=== PATIENT | female | born 1940 | race Caucasian/White ===

== ENCOUNTER 2017-01-06 18:31 | Observation (INO) | payer MEDICARE ==
[~2017-01-06 18:31] MED LIST: Albuterol/Ipratropium 3.0-0.5 MG/3 ML Neb Soln NEB ONE
[2017-01-06] MEDS ORDERED: Morphine 2 MG/ML Syringe IVPUSH ONE (18:35)
[2017-01-06] MEDS ORDERED: methylPREDNISolone Sodium Succinate 125 MG/2 ML SDV IVPUSH ONE (18:43)
--- NOTE | 2017-01-06 18:53 | EDM.PDOC ---
ED HPI GENERAL MEDICAL PROBLEM - General Stated Complaint: STROKE Time Seen by Provider: 01/06/17 18:31 Source of Information: Reports: Patient, EMS History Limitations: Reports: Altered Mental Status - History of Present Illness INITIAL COMMENTS - FREE TEXT/NARRATIVE: 76 years old w f with multiple medical issues, including, dementia, incontinence , CVA, came to the ed due to "stroke like symptoms" . No family is present, pt is not able to give a HPI. Pt is DNR/DNI. Pt has a gaze to the left, upper airways are open, not responding to verbal stimuli, BP 171/87 on arrval, puls was 88, Puls ox was 96 on RA, Pt's entire body was rigid. does not move her extremities. Pt had poor air movement with exp. wheezes. Onset: Unknown/Unsure Onset Date: 01/06/17 Onset Time: 13:00 Duration: Hour(s):, Constant Location: Reports: Generalized - Related Data Allergies Allergy/AdvReac Type Severity Reaction Status Date / Time hydrochlorothiazide Allergy Cannot Verified 01/06/17 19:36 [From Hyzaar] Remember levofloxacin [From Levaquin] Allergy Cannot Verified 01/06/17 19:36 Remember losartan potassium Allergy Cannot Verified 01/06/17 19:36 [From Hyzaar] Remember Home Meds: Home Meds Hydrochlorothiazide [Hydrochlorothiazide] 12.5 mg PO DAILY 01/06/17 [History] L. Acidophilus/Strept/LA P-Naveed [Risaquad-2] 1 cap PO DAILY 01/06/17 [History] Lisinopril 20 mg PO BID 01/06/17 [History] Loperamide [Imodium AD] 2 mg PO DAILY 01/06/17 [History] Memantine [Namenda] 10 mg PO BID 01/06/17 [History] Metoprolol Tartrate [Lopressor] 50 mg PO BID 01/06/17 [History] Omeprazole 20 mg PO DAILY 01/06/17 [History] ED ROS GENERAL - Review of Systems Review Of Systems: Unable To Obtain ED EXAM, NEURO - Physical Exam Exam: See Below Exam Limited By: Other General Appearance: WD/WN, Mild Distress Eye Exam: Bilateral Eye: Abnormal EOM (gaze preference to left (old)) Ears: Normal External Exam Nose: Normal Inspection, Normal Mucosa, No Blood Throat/Mouth: No Airway Compromise, Other (dry mucosal membrtanes) Head Exam: Atraumatic, Normocephalic Neck: Normal Inspection, Supple, Non-Tender, Full Range of Motion Respiratory/Chest: Respiratory Distress, Decreased Breath Sounds, Wheezing, Prolonged Expiration Cardiovascular: Normal Peripheral Pulses, Regular Rate, Rhythm, No Edema, No Gallop GI/Abdominal: Normal Bowel Sounds, Soft, Non-Tender, No Organomegaly (Female) Exam: Deferred Rectal (Female) Exam: Deferred Neurological: Other (unable to examine due to the Pt's underlying disease) Back Exam: Normal Inspection, Full Range of Motion Extremities: Normal Inspection Psychiatric: Depressed Mood, Flat Affect Skin Exam: Warm, Dry, Intact, Normal Color, No Rash EKG INTERPRETATION EKG Date: 01/06/17 Time: 19:00 Rhythm: NSR Rate (Beats/Min): 88 [place]: Normal P-Wave: Present QRS: Normal ST-T: Normal QT: Normal Comparison: NA - No Prior EKG Course - Vital Signs Text/Narrative:: 76 years old w f with multiple medical issues, including, dementia, incontinence , CVA, came to the ed due to "stroke like symptoms" . No family is present, pt is not able to give a HPI. Pt is DNR/DNI. Pt has a gaze to the left, upper airways are open, not responding to verbal stimuli, BP 171/87 on arrval, puls was 88, Puls ox was 96 on RA, Pt's entire body was rigid. Pt had poor air movement with exp. wheezes. PE: Pt is not able to communicate verbally, Gaze to left, exp wheezes, dry mucosal membranes. 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 Pt does not lift lower extr.(old) Labs; WBC 15K otherwise WNL UA neg for UTI Imaging: CT head NAD Impression: DNR/DNI, dementia, CVA, Gen body ache, Asthma exacerbation, Dehydration. Incontinent. HTN, gen body ache Tx: Morphine, Duoneb, Solumedrol, NS. Reexam: BP was 131/87, wheezing subsided, Mucosal membranes were moist. Family requested admission. Plan: Admit fro observation Last Recorded V/S: Last Vital Signs Temp 36.3 C 01/06/17 20:19 Pulse 93 01/06/17 21:16 Resp 16 01/06/17 21:16 BP 167/90 H 01/06/17 21:16 Pulse Ox 98 01/06/17 21:16 - Orders/Labs/Meds Orders: Active Orders 24 hr Category Date Time Status Patient Status [ADT] Routine ADT 01/06/17 21:04 Active Bedrest Bedside Commode [RC] ASDIRECTED Care 01/06/17 21:03 Active EKG Documentation Completion [RC] ASDIRECTED Care 01/06/17 18:36 Active Oxygen Therapy [RC] PRN Care 01/06/17 21:04 Active RT Aerosol Therapy [RC] ASDIRECTED Care 01/06/17 18:47 Active RT Aerosol Therapy [RC] ASDIRECTED Care 01/06/17 21:10 Active Up With Assistance [RC] ASDIRECTED Care 01/06/17 21:03 Active VTE/DVT Education [RC] Per Unit Routine Care 01/06/17 21:04 Active Vital Signs [RC] Q4H Care 01/06/17 21:04 Active Nothing per Oral Now Diet [DIET] Diet 01/06/17 Breakfast Ordered CXR [Chest 1V Frontal] [CR] Stat Exams 01/06/17 18:53 Taken Head wo Cont [CT] Stat Exams 01/06/17 18:46 Ordered Albuterol [Proventil Neb Soln] Med 01/06/17 21:03 Active 2.5 mg NEB Q2H PRN Morphine Med 01/06/17 21:03 Active 2 mg IVPUSH Q4H PRN Ondansetron [Zofran] Med 01/06/17 21:03 Active 4 mg IV Q4H PRN Sodium Chloride 0.9% [Normal Saline] 1,000 ml Med 01/06/17 19:30 Active IV ASDIRECTED Sodium Chloride 0.9% [Saline Flush] Med 01/06/17 18:46 Active 10 ml FLUSH ASDIRECTED PRN Sodium Chloride 0.9% [Saline Flush] Med 01/06/17 21:03 Active 10 ml FLUSH ASDIRECTED PRN Peripheral IV Insertion Adult [OM.PC] Routine Oth 01/06/17 21:03 Ordered Saline Lock Insert [OM.PC] Routine Oth 01/06/17 18:46 Ordered Resuscitation Status Routine Resus Stat 01/06/17 21:03 Ordered EKG 12 Lead [EK] Routine Ther 01/06/17 18:36 Ordered Medication Orders Albuterol (Proventil Neb Soln) 2.5 mg NEB Q2H PRN PRN Reason: Shortness Of Breath/wheezing Sodium Chloride (Normal Saline) 1,000 mls @ 999 mls/hr IV ASDIRECTED MARCELLA Last Admin: 01/06/17 20:36 Dose: 999 mls/hr Sodium Chloride (Normal Saline) 1,000 mls @ 125 mls/hr IV ASDIRECTED [facility] Methylprednisolone Sodium Succinate (Solu-Medrol) 125 mg IVPUSH Q8H MARCELLA Morphine Sulfate (Morphine) 2 mg IVPUSH Q4H PRN PRN Reason: Pain (severe 7-10) Ondansetron HCl (Zofran) 4 mg IV Q4H PRN PRN Reason: Nausea/Vomiting Sodium Chloride (Saline Flush) 10 ml FLUSH ASDIRECTED PRN PRN Reason: Keep Vein Open Last Admin: 01/06/17 18:56 Dose: 10 ml Admin: 01/06/17 18:54 Dose: 10 ml Sodium Chloride (Saline Flush) 10 ml FLUSH ASDIRECTED PRN PRN Reason: Keep Vein Open Labs: Laboratory Tests 01/06/17 01/06/17 01/06/17 Range/Units 18:45 18:45 18:45 WBC 15.3 H (4.5-12.0) X10-3/uL RBC 4.01 (3.23-5.20) x10(6)uL Hgb 11.5 (11.5-15.5) g/dL Hct 35.4 (30.0-51.3) % MCV 88.2 (80-96) fL MCH 28.6 (27.7-33.6) pg MCHC 32.5 (32.2-35.4) g/dL RDW 14.2 (11.5-15.5) % Plt Count 368 (125-369) X10(3)uL MPV 9.2 (7.4-10.4) fL Neut % (Auto) 78.8 (46-82) % Lymph % (Auto) 13.5 (13-37) % [place] % (Auto) 6.3 (4-12) % Eos % (Auto) 1 (1.0-5.0) % Baso % (Auto) 1 (0-2) % Neut # (Auto) 12.0 H (1.6-8.3) # Lymph # (Auto) 2.1 (0.6-5.0) # [place] # (Auto) 1.0 (0.0-1.3) # Eos # (Auto) 0.1 (0.0-0.8) # Baso # (Auto) 0.1 (0.0-0.2) # PT 9.7 (8.7-11.1) INR 0.96 (0.89-1.13) Sodium 140 (135-145) mmol/L Potassium 4.9 D (3.5-5.3) mmol/L Chloride 108 (100-110) mmol/L Carbon Dioxide 21 L (23-29) mmol/L BUN 35 H D (8-23) mg/dL Creatinine 1.2 (0.6-1.3) mg/dL Est Cr Clr Drug Dosing TNP Estimated GFR (MDRD) 43 L (>60) BUN/Creatinine Ratio 29.2 H (9-20) Glucose 131 H (80-116) mg/dL Calcium 9.5 (8.6-10.2) mg/dL Creatine Kinase 174 H (60-160) IU/L Troponin I (0.02-0.06) NG/ML B-Natriuretic Peptide (0-100) pg/mL Urine Color (YELLOW) Urine Appearance (CLEAR) Urine pH (5.0-6.5) Ur Specific [place] (1.010-1.025) Urine Protein (NEGATIVE) mg/dL Urine Glucose (UA) (NEGATIVE) mg/dL Urine Ketones (NEGATIVE) mg/dL Urine Occult Blood (NEGATIVE) Urine Nitrite (NEGATIVE) Urine Bilirubin (NEGATIVE) Urine Urobilinogen (NEGATIVE) mg/dL Ur Leukocyte Esterase (NEGATIVE) Urine RBC (0) Urine WBC (0) Ur Squamous Epith Cells (NS,R,O) Amorphous Sediment Urine Bacteria (NS) 01/06/17 01/06/17 01/06/17 Range/Units 18:45 18:45 19:58 WBC (4.5-12.0) X10-3/uL RBC (3.23-5.20) x10(6)uL Hgb (11.5-15.5) g/dL Hct (30.0-51.3) % MCV (80-96) fL MCH (27.7-33.6) pg MCHC (32.2-35.4) g/dL RDW (11.5-15.5) % Plt Count (125-369) X10(3)uL MPV (7.4-10.4) fL Neut % (Auto) (46-82) % Lymph % (Auto) (13-37) % [place] % (Auto) (4-12) % Eos % (Auto) (1.0-5.0) % Baso % (Auto) (0-2) % Neut # (Auto) (1.6-8.3) # Lymph # (Auto) (0.6-5.0) # [place] # (Auto) (0.0-1.3) # Eos # (Auto) (0.0-0.8) # Baso # (Auto) (0.0-0.2) # PT (8.7-11.1) INR (0.89-1.13) Sodium (135-145) mmol/L Potassium (3.5-5.3) mmol/L Chloride (100-110) mmol/L Carbon Dioxide (23-29) mmol/L BUN (8-23) mg/dL Creatinine (0.6-1.3) mg/dL Est Cr Clr Drug Dosing Estimated GFR (MDRD) (>60) BUN/Creatinine Ratio (9-20) Glucose (80-116) mg/dL Calcium (8.6-10.2) mg/dL Creatine Kinase (60-160) IU/L Troponin I < 0.01 L (0.02-0.06) NG/ML B-Natriuretic Peptide 53 (0-100) pg/mL Urine Color Yellow (YELLOW) Urine Appearance Clear (CLEAR) Urine pH 5.0 (5.0-6.5) Ur Specific [place] 1.020 (1.010-1.025) Urine Protein Negative (NEGATIVE) mg/dL Urine Glucose (UA) Normal (NEGATIVE) mg/dL Urine Ketones Negative (NEGATIVE) mg/dL Urine Occult Blood Negative (NEGATIVE) Urine Nitrite Negative (NEGATIVE) Urine Bilirubin Small H (NEGATIVE) Urine Urobilinogen Normal (NEGATIVE) mg/dL Ur Leukocyte Esterase Negative (NEGATIVE) Urine RBC 0-5 (0) Urine WBC 0-5 (0) Ur Squamous Epith Cells Occasional (NS,R,O) Amorphous Sediment Few Urine Bacteria Rare H (NS) Meds: Medications Generic Name Dose Route Start Last Admin Trade Name Elizabeth PRN Reason Stop Dose Admin Albuterol 2.5 mg 01/06/17 21:03 Proventil Neb Soln NEB Q2H PRN Shortness Of Breath/wheezing Sodium Chloride 1,000 mls @ 999 mls/hr 01/06/17 19:30 01/06/17 20:36 Normal Saline IV 999 mls/hr ASDIRECTED MARCELLA Administration Sodium Chloride 1,000 mls @ 125 mls/hr 01/06/17 21:15 Normal Saline IV ASDIRECTED MARCELLA Methylprednisolone Sodium Succinate 125 mg 01/06/17 21:15 Solu-Medrol IVPUSH Q8H MARCELLA Morphine Sulfate 2 mg 01/06/17 21:03 Morphine IVPUSH Q4H PRN Pain (severe 7-10) Ondansetron HCl 4 mg 01/06/17 21:03 Zofran IV Q4H PRN Nausea/Vomiting Sodium Chloride 10 ml 01/06/17 18:46 01/06/17 18:56 Saline Flush FLUSH 10 ml ASDIRECTED PRN Administration Keep Vein Open Sodium Chloride 10 ml 01/06/17 21:03 Saline Flush FLUSH ASDIRECTED PRN Keep Vein Open Discontinued Medications Generic Name Dose Route Start Last Admin Trade Name Elizabeth PRN Reason Stop Dose Admin Albuterol/Ipratropium 3 ml 01/06/17 18:20 01/06/17 18:35 Duoneb 3.0-0.5 Mg/3 Ml NEB 01/06/17 18:21 3 ml ONETIME ONE Administration Methylprednisolone Sodium Succinate 125 mg 01/06/17 18:43 01/06/17 18:53 Solu-Medrol IVPUSH 01/06/17 18:44 125 mg ONETIME ONE Administration Morphine Sulfate 2 mg 01/06/17 18:35 01/06/17 18:51 Morphine IVPUSH 01/06/17 18:36 2 mg ONETIME ONE Administration Departure - Departure Time of Disposition: 21:16 Disposition: Refer to Observation Condition: Fair Clinical Impression: Asthma attack, Dehydration, DNR (do not resuscitate), Gaze preference CVA (cerebral vascular accident) Qualifiers: CVA mechanism: unspecified Qualified Code(s): I63.9 - Cerebral infarction, unspecified Dementia Qualifiers: Dementia type: unspecified type - Discharge Information - My Orders Last 24 Hours: My Active Orders 01/06/17 18:36 EKG Documentation Completion [RC] ASDIRECTED EKG 12 Lead [EK] Routine 01/06/17 18:46 Head wo Cont [CT] Stat Sodium Chloride 0.9% [Saline Flush] 10 ml FLUSH ASDIRECTED PRN Saline Lock Insert [OM.PC] Routine 01/06/17 18:47 RT Aerosol Therapy [RC] ASDIRECTED 01/06/17 18:53 CXR [Chest 1V Frontal] [CR] Stat 01/06/17 19:30 Sodium Chloride 0.9% [Normal Saline] 1,000 ml IV ASDIRECTED 01/06/17 21:03 Bedrest Bedside Commode [RC] ASDIRECTED Up With Assistance [RC] ASDIRECTED Albuterol [Proventil Neb Soln] 2.5 mg NEB Q2H PRN Morphine 2 mg IVPUSH Q4H PRN Ondansetron [Zofran] 4 mg IV Q4H PRN Sodium Chloride 0.9% [Saline Flush] 10 ml FLUSH ASDIRECTED PRN Peripheral IV Insertion Adult [OM.PC] Routine Resuscitation Status Routine 01/06/17 21:04 Patient Status [ADT] Routine Oxygen Therapy [RC] PRN VTE/DVT Education [RC] Per Unit Routine Vital Signs [RC] Q4H 01/06/17 21:10 RT Aerosol Therapy [RC] ASDIRECTED 01/06/17 Breakfast Nothing per Oral Now Diet [DIET] - Assessment/Plan Last 24 Hours: My Active Orders 01/06/17 18:36 EKG Documentation Completion [RC] ASDIRECTED EKG 12 Lead [EK] Routine 01/06/17 18:46 Head wo Cont [CT] Stat Sodium Chloride 0.9% [Saline Flush] 10 ml FLUSH ASDIRECTED PRN Saline Lock Insert [OM.PC] Routine 01/06/17 18:47 RT Aerosol Therapy [RC] ASDIRECTED 01/06/17 18:53 CXR [Chest 1V Frontal] [CR] Stat 01/06/17 19:30 Sodium Chloride 0.9% [Normal Saline] 1,000 ml IV ASDIRECTED 01/06/17 21:03 Bedrest Bedside Commode [RC] ASDIRECTED Up With Assistance [RC] ASDIRECTED Albuterol [Proventil Neb Soln] 2.5 mg NEB Q2H PRN Morphine 2 mg IVPUSH Q4H PRN Ondansetron [Zofran] 4 mg IV Q4H PRN Sodium Chloride 0.9% [Saline Flush] 10 ml FLUSH ASDIRECTED PRN Peripheral IV Insertion Adult [OM.PC] Routine Resuscitation Status Routine 01/06/17 21:04 Patient Status [ADT] Routine Oxygen Therapy [RC] PRN VTE/DVT Education [RC] Per Unit Routine Vital Signs [RC] Q4H 01/06/17 21:10 RT Aerosol Therapy [RC] ASDIRECTED 01/06/17 Breakfast Nothing per Oral Now Diet [DIET]
[2017-01-06] MEDS: Sodium Chloride 0.9% 10 ML Syringe FLUSH PRN ×2 (18:54→18:56)
[2017-01-06] MEDS ORDERED: Sodium Chloride 0.9% 1,000 ML IV SCH ×2 (19:30→21:15)
[2017-01-06] MEDS ORDERED: Ondansetron 4 MG/2 ML SDV IV PRN (21:03)
[2017-01-06] MEDS ORDERED: Morphine 2 MG/ML Syringe IVPUSH PRN (21:03)
[2017-01-06] MEDS ORDERED: Albuterol 0.083% 2.5 MG/3 ML Neb Soln NEB PRN (21:03)
[2017-01-06] MEDS ORDERED: Sodium Chloride 0.9% 10 ML Syringe FLUSH PRN (21:03)
[2017-01-07] MEDS: methylPREDNISolone Sodium Succinate 125 MG/2 ML SDV IVPUSH SCH ×2 (04:19→06:59)
[2017-01-07] MEDS ORDERED: Labetalol 20 MG/4 ML Syringe IVPUSH ONE (04:48)
[2017-01-07] MEDS ORDERED: Albuterol/Ipratropium 3.0-0.5 MG/3 ML Neb Soln NEB ONE (04:55)
[2017-01-07] MEDS ORDERED: Ondansetron 4 MG/2 ML SDV IVPUSH PRN (07:24)
[2017-01-07 08:22] VITALS: BP 124/56
[2017-01-07] MEDS ORDERED: methylPREDNISolone Sodium Succinate 125 MG/2 ML SDV IVPUSH SCH (12:00)
--- NOTE | 2017-01-07 12:15 | HP ---
ADMISSION DATE: 01/06/2017 CHIEF COMPLAINT: High blood pressure, fall, and weakness. HISTORY OF PRESENT ILLNESS: Ms. Gardner is a 76-year-old resident of [facility] who was had a dense stroke and severe dementia as well as hypertension. The patient was at her Living Center at [facility] on the day of admission, when she apparently fell. They checked her blood pressure and it was high in the 200/130 range with a rapid pulse. So, they sent her to the ER where she was evaluated and admitted for observation. It is not clear what caused her to fall but there were no apparent injuries to the patient, and she does not seem to indicate any areas of pain at this time. The patient has had observation, monitoring, and has been kept n.p.o. since arrival from the emergency room to the unit. PAST MEDICAL HISTORY: Chronic essential hypertension. She has also had a dense CVA in the past. She has Lewy Body dementia, history of polymyalgia rheumatica, osteoarthritis, and sleep apnea. She is status post tubal ligation, TUR, bladder tumor, and a history of right arm fracture. MEDICATIONS: 1. Omeprazole 20 mg daily. 2. Metoprolol 50 mg b.i.d. 3. Namenda 10 mg b.i.d. 4. Loperamide p.r.n. 5. Lisinopril 20 mg b.i.d. 6. Acidophilus capsules one daily. 7. Hydrochlorothiazide 12.5 mg daily. ALLERGIES: Levaquin and losartan. Reactions not listed. HABITS: Nonsmoker and nondrinker. FAMILY AND SOCIAL HISTORY: The patient is and she lives at [facility]. Her lives in [place]. REVIEW OF SYSTEMS: Not reliably obtainable from the patient but no apparent changes in hearing, vision, respiratory status, no indication of pain, nausea, vomiting, diarrhea, hematuria, or motor change. She has a right hemiplegia and tonic left gaze with no significant verbalization. PHYSICAL EXAMINATION: GENERAL: She is examined lying on the bed. She does have a tonically left deviated gaze but normal easy respirations. She does not respond to commands. HEENT: Mouth is quite dry. NECK: Supple. LUNGS: Clear with good air movement at the bases. HEART: Regular without murmur or gallop. ABDOMEN: Normal bowel sounds. Soft, obese, nontender. No masses. No organomegaly. Diaper is in place. EXTREMITIES: Show stiffness of the right arm but motion of the left arm. Both legs are extremely spastic as well. She exhibits no spontaneous movement of her legs. LABORATORY DATA: White count 98128, hemoglobin 11.5. Sodium 140, potassium 4.9, BUN 35, creatinine 1.2. Troponin less than 0.01. BNP 53. Chest x-ray shows no infiltrates. Urinalysis normal. ASSESSMENT: 1. A 76-year-old woman with fall and episode of hypertension, no apparent injury, and no new significant findings on physical exam. 2. Chronic of Lewy body dementia. 3. History of cerebrovascular accidents with right hemiplegia and aphagia. 4. Hypertension. 5. History of gastroesophageal reflux disease. PLAN: She will be return to [facility] to continue her same medications and monitoring and follow up on a p.r.n. basis. /[id number] LACEY/MARIBEL
--- NOTE | 2017-01-12 15:50 | CR ---
INDICATION: Wheezes. CHEST: An AP upright view of the chest, 01/06/2017, was obtained. No comparisons were available. Very poor inspiration is noted, emphasizing markings. Evidence of exogenous obesity is noted. The heart appears somewhat enlarged, but is emphasized by the poor inspiration, as are the markings. A definite consolidating pneumonia or effusion was not identified. The aorta is tortuous and calcified in the arch area. Degenerative changes are noted at the glenohumeral joints. IMPRESSION: 1. No definite acute process. Would suggest PA and lateral views with full inspiration when clinically possible for better evaluation, however. 2. Probable ASHD with mild cardiomegaly. 3. Exogenous obesity. MTDD
== END 2017-01-07 09:50 ==
LOC: FB.ED 18:31 → FB.MS 21:04
PROVIDERS: ADMIT Family Medicine; ATTEND Family Medicine
DX: I10 Essential (primary) hypertension (principal); G31.83 Neurocognitive disorder with Lewy bodies; F02.80 Dementia in other diseases classified elsewhere, unspecified severity, without behavioral disturbance, psychotic disturbance, mood disturbance, and anxiety; I63.8 Other cerebral infarction; G81.91 Hemiplegia, unspecified affecting right dominant side; R47.01 Aphasia; K21.9 Gastro-esophageal reflux disease without esophagitis; Z88.1 Allergy status to other antibiotic agents; Z88.8 Allergy status to other drugs, medicaments and biological substances; Z79.899 Other long term (current) drug therapy; Z66 Do not resuscitate; G47.30 Sleep apnea, unspecified; Z98.51 Tubal ligation status; Z98.890 Other specified postprocedural states; R06.00 Dyspnea, unspecified; R06.2 Wheezing
CPT/HCPCS: 36415; 70450; 71010; 80048; 81001; 82550; 83880; 84484; 85025; 85610; 93005; 94664; 96361; 96374; 96375; 96376; 99285; G0378; J2270; J2930; J7040; J7050; J7620; 99219

== ENCOUNTER 2017-01-08 09:54 | Inpatient (IN) | payer MEDICARE ==
[2017-01-08] MEDS ORDERED: Albuterol 0.083% 2.5 MG/3 ML Neb Soln NEB PRN (09:59)
[2017-01-08] MEDS ORDERED: Sodium Chloride 0.9% 10 ML Syringe FLUSH PRN (10:53)
[2017-01-08] MEDS: Lactated Ringers 1,000 ML IV SCH ×2 (11:39→19:13)
--- NOTE | 2017-01-08 18:23 | HP ---
ADMISSION DATE: 01/08/2017 CHIEF COMPLAINT: Weakness, lethargy, poor oral intake and elevated blood pressure. HISTORY OF PRESENT ILLNESS: Mrs. Gardner is a 76-year-old resident of [facility] with a history of stroke, dementia, and hypertension. The patient was sent over from the shelter to [place] acutely on 01/06/2017. She has had poor oral intake, was unable to take her blood pressure pills and had elevated blood pressures into the up to [address] of the head was done, revealing no apparent intracerebral bleed. She was admitted to the floor for markedly elevated blood pressure and after 24 hours of observation her blood pressure came down and she was returned to [facility]. However, once back it was apparent she was still unable to take her oral medications. She was given her blood pressure pills rectally and her oral intake continued to be poor. For this reason phone contact was made, and she was brought back to [place] for acute inpatient admission. The patient is unable to give us a history. History as above is recorded from verbal consultation with the patient's nurse and likewise with her son Collin. PAST MEDICAL HISTORY: Includes a long-standing chronic essential hypertension. She has had a dense left CVA with aphasia and right hemiplegia. She has Lewy body dementia, osteoarthritis, history of sleep apnea, polymyalgia rheumatica. She is status post TUR of a bladder tumor and tubal ligation. MEDICATIONS: 1. Omeprazole 20 mg daily. 2. Metoprolol 50 mg b.i.d. 3. Namenda 10 mg b.i.d. 4. Loperamide p.r.n. 5. Lisinopril 20 mg b.i.d. 6. Acidophilus capsules one daily. 7. Hydrochlorothiazide 12.5 mg daily. ALLERGIES: Levaquin and losartan. HABITS: Nonsmoker and nondrinker. FAMILY AND SOCIAL HISTORY: The patient is . She lives at [facility], because of her severe dementia and stroke. Her lives in [place] as does her son. REVIEW OF SYSTEMS: Not obtainable from the patient, but in general she has not had a high fever or noted cough. This morning she was found to have increasing respiratory effort. No reports of chest pain, abdominal pain, vomiting diarrhea, swelling, skin rash. Her level of alertness, however, has been significantly decreased. PHYSICAL EXAMINATION: GENERAL: She is awake, but has a tonic deviated gaze to the left upper visual field. VITAL SIGNS: Blood pressure was elevated at 170 systolic, pulse 115 and regular, respirations 20, O2 saturation 95% on 1 L nasal cannula. HEENT: TMs are both pearly white and normal. Pupils are equal and reactive, there is evidence of IOL in the right eye and a cataract on her left eye. Her throat is clear. Mouth is very dry with a caked tongue. NECK: Supple. LUNGS: Good air movement to both bases. Fine rales are heard on the right side. HEART: Regular, without murmur, rub, or gallop. ABDOMEN: Obese soft, normal bowel sounds, nontender, no masses, no organomegaly. EXTREMITIES: Warm, I could not however palpate pedal pulses. She has trace edema at the ankles bilaterally. NEUROLOGIC: She does not verbalize, however, she did squeeze my fingers with her left hand on command and she did bring her gaze down to the midline when spoken to and asked to look at my light. She has a right hemiplegia with minimal movement of the right upper extremity. She has extreme rigidity of both lower extremities. LABORATORY DATA: White count 12,300 and hemoglobin 10.2 g. BUN 30 and creatinine 0.7. Chest x-ray is pending. ASSESSMENT: 1. A 76-year-old woman with a relatively sudden decline in neurological status, elevated blood pressure, weakness, lethargy, this may represent a new stroke, although, CT of the head did not show any intracerebral hemorrhage when done here after on her outpatient visit. 2. Increased work of respirations, possible pneumonia. 3. History of dense left cerebrovascular accident with aphasia and right hemiplegia. 4. Chronic essential hypertension. 5. Acute dehydration due to poor oral intake. PLAN: We will review her chest x-ray. I have started IV fluids for rehydration. We will treat pneumonia with antibiotics if present and continue palliative care measures for her dementia, CVA. I anticipate return to [facility] upon discharge. /[id number] RO/MODL
[2017-01-08] MEDS ORDERED: Labetalol 20 MG/4 ML Syringe IVPUSH ONE (20:16)
[2017-01-08] MEDS: Metoprolol Tartrate 50 MG Tab PO SCH (20:46)
[2017-01-08] MEDS: Lisinopril 20 MG Tab PO SCH (20:47)
[2017-01-09] MEDS: Lactated Ringers 1,000 ML IV SCH ×3 (03:33→21:53)
[2017-01-09] MEDS: Pantoprazole 40 MG Tab.CR PO SCH (05:47)
[2017-01-09] MEDS: Metoprolol Tartrate 50 MG Tab PO SCH ×2 (09:28→21:39)
[2017-01-09] MEDS: Lisinopril 20 MG Tab PO SCH ×2 (09:28→21:39)
[2017-01-09] MEDS ORDERED: Sodium Chloride 0.9% 250 ML IV SCH (11:00)
--- NOTE | 2017-01-09 11:03 | PCM.PN ---
- General Info Date of Service: 01/09/17 Admission Dx/Problem (Free Text): Patient is nonverbal. She looks in situ disappear to be in any distress. The nurses report that she still not able to take her pills. No other history noted. No coughing or noted shortness of breath. - Patient Data Vitals - Most Recent: Last Vital Signs Temp 98.1 F 01/09/17 08:00 Pulse 78 01/09/17 08:00 Resp 17 01/09/17 08:00 BP 152/93 H 01/09/17 08:00 Pulse Ox 96 01/09/17 10:01 Weight - Most Recent: 166 lb I&O - Last 24 Hours: Intake & Output 01/08/17 01/09/17 01/09/17 22:59 06:59 14:59 Intake Total 1442 997 Balance 1442 997 Lab Results Last 24 Hours: Laboratory Results - last 24 hr 01/08/17 01/08/17 01/08/17 Range/Units 11:02 11:02 16:15 WBC 12.3 H (4.5-12.0) X10-3/uL RBC 3.41 (3.23-5.20) x10(6)uL Hgb 10.2 L (11.5-15.5) g/dL Hct 29.8 L (30.0-51.3) % MCV 87.7 (80-96) fL MCH 29.8 (27.7-33.6) pg MCHC 34.0 (32.2-35.4) g/dL RDW 14.5 (11.5-15.5) % Plt Count 325 (125-369) X10(3)uL MPV 8.6 (7.4-10.4) fL Neut % (Auto) 78.8 (46-82) % Lymph % (Auto) 12.3 L (13-37) % [place] % (Auto) 7.5 (4-12) % Eos % (Auto) 0 L (1.0-5.0) % Baso % (Auto) 1 (0-2) % Neut # (Auto) 9.7 H (1.6-8.3) # Lymph # (Auto) 1.5 (0.6-5.0) # Davie # (Auto) 0.9 (0.0-1.3) # Eos # (Auto) 0.0 (0.0-0.8) # Baso # (Auto) 0.2 (0.0-0.2) # Sodium 143 (135-145) mmol/L Potassium 4.0 (3.5-5.3) mmol/L Chloride 111 H (100-110) mmol/L Carbon Dioxide 23 (23-29) mmol/L BUN 30 H (8-23) mg/dL Creatinine 0.7 (0.6-1.3) mg/dL Est Cr Clr Drug Dosing 54.79 mL/min Estimated GFR (MDRD) > 60 (>60) BUN/Creatinine Ratio 42.9 H (9-20) Glucose 113 (80-116) mg/dL Calcium 9.4 (8.6-10.2) mg/dL Total Bilirubin 0.2 (0.1-1.3) mg/dL AST 12 (5-27) IU/L ALT 13 L (14-26) IU/L Alkaline Phosphatase 60 (56-112) IU/L Total Protein 6.8 (6.0-8.0) g/dL Albumin 3.6 (3.2-4.6) g/dL Globulin 3.2 g/dL Albumin/Globulin Ratio 1.1 Urine Color Yellow (YELLOW) Urine Appearance Cloudy (CLEAR) Urine pH 5.0 (5.0-6.5) Ur Specific [place] 1.010 (1.010-1.025) Urine Protein Negative (NEGATIVE) mg/dL Urine Glucose (UA) Normal (NEGATIVE) mg/dL Urine Ketones Negative (NEGATIVE) mg/dL Urine Occult Blood Moderate H (NEGATIVE) Urine Nitrite Negative (NEGATIVE) Urine Bilirubin Negative (NEGATIVE) Urine Urobilinogen Normal (NEGATIVE) mg/dL Ur Leukocyte Esterase Negative (NEGATIVE) 01/09/17 01/09/17 Range/Units 06:00 06:00 WBC 11.6 (4.5-12.0) X10-3/uL RBC 3.39 (3.23-5.20) x10(6)uL Hgb 9.7 L (11.5-15.5) g/dL Hct 29.9 L (30.0-51.3) % MCV 88.1 (80-96) fL MCH 28.5 (27.7-33.6) pg MCHC 32.3 (32.2-35.4) g/dL RDW 14.3 (11.5-15.5) % Plt Count 280 (125-369) X10(3)uL MPV 8.9 (7.4-10.4) fL Neut % (Auto) 76.7 (46-82) % Lymph % (Auto) 16.3 (13-37) % Davie % (Auto) 6.0 (4-12) % Eos % (Auto) 0 L (1.0-5.0) % Baso % (Auto) 1 (0-2) % Neut # (Auto) 8.9 H (1.6-8.3) # Lymph # (Auto) 1.9 (0.6-5.0) # Davie # (Auto) 0.7 (0.0-1.3) # Eos # (Auto) 0.0 (0.0-0.8) # Baso # (Auto) 0.1 (0.0-0.2) # Sodium 142 (135-145) mmol/L Potassium 3.4 L (3.5-5.3) mmol/L Chloride 109 (100-110) mmol/L Carbon Dioxide 26 (23-29) mmol/L BUN 18 D (8-23) mg/dL Creatinine 0.6 (0.6-1.3) mg/dL Est Cr Clr Drug Dosing 63.92 mL/min Estimated GFR (MDRD) > 60 (>60) BUN/Creatinine Ratio 30.0 H (9-20) Glucose 110 (80-116) mg/dL Calcium 9.0 (8.6-10.2) mg/dL Total Bilirubin (0.1-1.3) mg/dL AST (5-27) IU/L ALT (14-26) IU/L Alkaline Phosphatase (56-112) IU/L Total Protein (6.0-8.0) g/dL Albumin (3.2-4.6) g/dL Globulin g/dL Albumin/Globulin Ratio Urine Color (YELLOW) Urine Appearance (CLEAR) Urine pH (5.0-6.5) Ur Specific [place] (1.010-1.025) Urine Protein (NEGATIVE) mg/dL Urine Glucose (UA) (NEGATIVE) mg/dL Urine Ketones (NEGATIVE) mg/dL Urine Occult Blood (NEGATIVE) Urine Nitrite (NEGATIVE) Urine Bilirubin (NEGATIVE) Urine Urobilinogen (NEGATIVE) mg/dL Ur Leukocyte Esterase (NEGATIVE) Laz Results Last 24 Hours: Microbiology 01/08/17 11:02 Aerobic Blood Culture - Preliminary Blood - Venous Anaerobic Blood Culture - Preliminary Med Orders - Current: Current Medications Albuterol (Proventil Neb Soln) 2.5 mg NEB Q4H PRN PRN Reason: Shortness Of Breath/wheezing Last Admin: 01/08/17 12:07 Dose: 2.5 mg Lactated Ringer's (Ringers, Lactated) 1,000 mls @ 125 mls/hr IV ASDIRECTED [facility] Last Admin: 01/09/17 03:33 Dose: 125 mls/hr Azithromycin 250 mg/ Sodium (Chloride) 250 mls @ 250 mls/hr IV Q24H [facility] Azithromycin 500 mg/ Sodium (Chloride) 250 mls @ 250 mls/hr IV ONETIME ONE Stop: 01/09/17 12:59 Ceftriaxone Sodium 1,000 mg/ (Sodium Chloride) 50 mls @ 100 mls/hr IV Q24H [facility] Sodium Chloride (Normal Saline) 250 mls @ 100 mls/hr IV ASDIRECTED [facility] Lisinopril (Prinivil) 20 mg PO BID [facility] Last Admin: 01/09/17 09:28 Dose: Not Given Metoprolol Tartrate (Lopressor) 50 mg PO BID [facility] Last Admin: 01/09/17 09:28 Dose: Not Given Pantoprazole Sodium (Protonix) 40 mg PO DAILY@0600 [facility] Last Admin: 01/09/17 05:47 Dose: Not Given Sodium Chloride (Saline Flush) 10 ml FLUSH ASDIRECTED PRN PRN Reason: Keep Vein Open Discontinued Medications Labetalol HCl (Normodyne) 10 mg IVPUSH ONETIME ONE PRN Reason: Protocol Stop: 01/08/17 20:17 Last Admin: 01/08/17 20:44 Dose: 10 mg - Exam General: Other (Eyes open but does not communicate in any way. It is not apparent if she's cognitive or not) Neck: Supple Lungs: Decreased Breath Sounds. No: Wheezing Cardiovascular: Regular Rate, Regular Rhythm. No: No Murmurs Extremities: No Pedal Edema Psy/Mental Status: Normal Affect. No: Alert - Problem List & Annotations (1) Positive blood culture SNOMED Code(s): 907367239 Code(s): R78.81 - BACTEREMIA Status: Acute Current Visit: Yes (2) Pneumonia SNOMED Code(s): 415252426 Code(s): J18.9 - PNEUMONIA, UNSPECIFIED ORGANISM Status: Acute Current Visit: Yes (3) Dehydration SNOMED Code(s): 56614494 Code(s): E86.0 - DEHYDRATION Status: Acute Current Visit: No (4) Dementia SNOMED Code(s): 86749060 Code(s): F03.90 - UNSPECIFIED DEMENTIA WITHOUT BEHAVIORAL DISTURBANCE Status: Acute Current Visit: No - Problem List Review Problem List Initiated/Reviewed/Updated: Yes - My Orders Last 24 Hours: My Active Orders 01/09/17 11:00 Sodium Chloride 0.9% [Normal Saline] 250 ml IV ASDIRECTED cefTRIAXone [Rocephin] 1,000 mg Sodium Chloride 0.9% [Normal Saline] 50 ml IV Q24H 01/09/17 12:00 Azithromycin [Zithromax] 500 mg Sodium Chloride 0.9% [Normal Saline] 250 ml IV ONETIME 01/10/17 12:00 Azithromycin [Zithromax] 250 mg Sodium Chloride 0.9% [Normal Saline] 250 ml IV Q24H - Plan Plan:: Patient had a blood culture is positive today. Started Rocephin and Zithromax. Chest x-ray reviewed and I cannot see definite infiltrate. It's not a good film. Wait for radiology interpretation. Discussed with the family her current care. They know she does not have a good outlook and poor quality of life. Discussed possible hospice. They'll take that into consideration. Continue IV fluids. Wait for the culture for I AND D.
[2017-01-09] MEDS: cefTRIAXone 1,000 MG in Sodium Chloride 0.9% 50 ML IV SCH (11:27)
[2017-01-09] MEDS ORDERED: Azithromycin 500 MG in Sodium Chloride 0.9% 250 ML IV ONE (12:00)
[2017-01-10] MEDS: Lactated Ringers 1,000 ML IV SCH ×2 (05:57→16:22)
[2017-01-10] MEDS: Pantoprazole 40 MG Tab.CR PO SCH ×2 (05:58→06:00)
--- NOTE | 2017-01-10 08:21 | PCM.PN ---
- General Info Date of Service: 01/10/17 Admission Dx/Problem (Free Text): Patient has her eyes open but is not responsive. Her states he feels that she is more alert today and does make contact. No concerns from the nurse. They've not tried to get her to take her pills as yet this morning. - Patient Data Vitals - Most Recent: Last Vital Signs Temp 98.1 F 01/10/17 00:10 Pulse 66 01/10/17 00:10 Resp 18 01/10/17 00:10 BP 169/76 H 01/10/17 00:10 Pulse Ox 94 L 01/10/17 00:10 Weight - Most Recent: 166 lb I&O - Last 24 Hours: Intake & Output 01/09/17 01/10/17 01/10/17 22:59 06:59 14:59 Intake Total 1032 1000 Balance 1032 1000 Laz Results Last 24 Hours: Microbiology 01/08/17 11:02 Aerobic Blood Culture - Preliminary Blood - Venous Anaerobic Blood Culture - Preliminary 01/08/17 11:07 Aerobic Blood Culture - Preliminary Blood - Venous - Lab Draw NO GROWTH AFTER 1 DAY Anaerobic Blood Culture - Preliminary NO GROWTH AFTER 1 DAY Med Orders - Current: Current Medications Albuterol (Proventil Neb Soln) 2.5 mg NEB Q4H PRN PRN Reason: Shortness Of Breath/wheezing Last Admin: 01/08/17 12:07 Dose: 2.5 mg Lactated Ringer's (Ringers, Lactated) 1,000 mls @ 125 mls/hr IV ASDIRECTED [facility] Last Admin: 01/10/17 05:57 Dose: 125 mls/hr Azithromycin 250 mg/ Sodium (Chloride) 250 mls @ 250 mls/hr IV Q24H [facility] Ceftriaxone Sodium 1,000 mg/ (Sodium Chloride) 50 mls @ 100 mls/hr IV Q24H [facility] Last Admin: 01/09/17 11:27 Dose: 100 mls/hr Sodium Chloride (Normal Saline) 250 mls @ 100 mls/hr IV ASDIRECTED [facility] Lisinopril (Prinivil) 20 mg PO BID [facility] Last Admin: 01/09/17 21:39 Dose: 20 mg Metoprolol Tartrate (Lopressor) 50 mg PO BID [facility] Last Admin: 01/09/17 21:39 Dose: 50 mg Pantoprazole Sodium (Protonix) 40 mg PO DAILY@0600 [facility] Last Admin: 01/10/17 06:00 Dose: Not Given Sodium Chloride (Saline Flush) 10 ml FLUSH ASDIRECTED PRN PRN Reason: Keep Vein Open Discontinued Medications Azithromycin 500 mg/ Sodium (Chloride) 250 mls @ 250 mls/hr IV ONETIME ONE Stop: 01/09/17 12:59 Last Admin: 01/09/17 12:21 Dose: 250 mls/hr Labetalol HCl (Normodyne) 10 mg IVPUSH ONETIME ONE PRN Reason: Protocol Stop: 01/08/17 20:17 Last Admin: 01/08/17 20:44 Dose: 10 mg - Exam General: Other (Her eyes are open she looks me but does not respond) Neck: Supple Lungs: Clear to Auscultation, Normal Respiratory Effort Cardiovascular: Regular Rate, Regular Rhythm, No Murmurs Extremities: No Pedal Edema - Problem List & Annotations (1) Positive blood culture SNOMED Code(s): 271334164 Code(s): R78.81 - BACTEREMIA Status: Acute Current Visit: Yes (2) Pneumonia SNOMED Code(s): 067009896 Code(s): J18.9 - PNEUMONIA, UNSPECIFIED ORGANISM Status: Acute Current Visit: Yes (3) Dehydration SNOMED Code(s): 39385107 Code(s): E86.0 - DEHYDRATION Status: Acute Current Visit: No (4) Dementia SNOMED Code(s): 94860272 Code(s): F03.90 - UNSPECIFIED DEMENTIA WITHOUT BEHAVIORAL DISTURBANCE Status: Acute Current Visit: No - Problem List Review Problem List Initiated/Reviewed/Updated: Yes - My Orders Last 24 Hours: My Active Orders 01/09/17 11:00 Sodium Chloride 0.9% [Normal Saline] 250 ml IV ASDIRECTED cefTRIAXone [Rocephin] 1,000 mg Sodium Chloride 0.9% [Normal Saline] 50 ml IV Q24H 01/10/17 12:00 Azithromycin [Zithromax] 250 mg Sodium Chloride 0.9% [Normal Saline] 250 ml IV Q24H - Plan Plan:: Continue antibiotics and IV fluids. Continue to try to get her to take her pills. Blood cultures are positive. Lab states that should be read out by tomorrow morning. Discussed this with her .
[2017-01-10] MEDS: Metoprolol Tartrate 50 MG Tab PO SCH ×2 (09:26→20:20)
[2017-01-10] MEDS: Lisinopril 20 MG Tab PO SCH ×2 (09:26→20:19)
[2017-01-10] MEDS: Enoxaparin 30 MG/0.3 ML Syringe SUBCUT SCH (10:27)
[2017-01-10] MEDS: cefTRIAXone 1,000 MG in Sodium Chloride 0.9% 50 ML IV SCH (11:30)
[2017-01-10] MEDS ORDERED: Azithromycin 250 MG in Sodium Chloride 0.9% 250 ML IV SCH (12:00)
[2017-01-11] MEDS: Pantoprazole 40 MG Tab.CR PO SCH (06:29)
--- NOTE | 2017-01-11 09:26 | PCM.PN ---
- General Info Date of Service: 01/11/17 Admission Dx/Problem (Free Text): Patient is sleeping. When I say her name loudly she does not open up her eyes. She is been doing well without talking. - Patient Data Vitals - Most Recent: Last Vital Signs Temp 98.2 F 01/11/17 00:00 Pulse 80 01/11/17 00:00 Resp 18 01/11/17 00:00 BP 189/94 H 01/11/17 00:00 Pulse Ox 95 01/11/17 07:29 Weight - Most Recent: 166 lb Lab Results Last 24 Hours: Laboratory Results - last 24 hr 01/10/17 Range/Units 11:50 Potassium 3.4 L (3.5-5.3) mmol/L Laz Results Last 24 Hours: Microbiology 01/08/17 11:02 Aerobic Blood Culture - Final Blood - Venous Staph Hominis Ss Hominis Anaerobic Blood Culture - Final 01/08/17 11:07 Aerobic Blood Culture - Preliminary Blood - Venous - Lab Draw NO GROWTH AFTER 2 DAYS Anaerobic Blood Culture - Preliminary NO GROWTH AFTER 2 DAYS Med Orders - Current: Current Medications Albuterol (Proventil Neb Soln) 2.5 mg NEB Q4H PRN PRN Reason: Shortness Of Breath/wheezing Last Admin: 01/08/17 12:07 Dose: 2.5 mg Enoxaparin Sodium (Lovenox) 30 mg SUBCUT Q24H [facility] Last Admin: 01/10/17 10:27 Dose: 30 mg Azithromycin 250 mg/ Sodium (Chloride) 250 mls @ 250 mls/hr IV Q24H [facility] Last Admin: 01/10/17 13:50 Dose: 250 mls/hr Ceftriaxone Sodium 1,000 mg/ (Sodium Chloride) 50 mls @ 100 mls/hr IV Q24H [facility] Last Admin: 01/10/17 11:30 Dose: 100 mls/hr Sodium Chloride (Normal Saline) 250 mls @ 100 mls/hr IV ASDIRECTED [facility] Last Admin: 01/09/17 11:20 Dose: 100 mls/hr Lisinopril (Prinivil) 20 mg PO BID [facility] Last Admin: 01/10/17 20:19 Dose: 20 mg Metoprolol Tartrate (Lopressor) 50 mg PO BID [facility] Last Admin: 01/10/17 20:20 Dose: 50 mg Pantoprazole Sodium (Protonix) 40 mg PO DAILY@0600 [facility] Last Admin: 01/11/17 06:29 Dose: Not Given Sodium Chloride (Saline Flush) 10 ml FLUSH ASDIRECTED PRN PRN Reason: Keep Vein Open Discontinued Medications Lactated Ringer's (Ringers, Lactated) 1,000 mls @ 125 mls/hr IV ASDIRECTED [facility] Last Admin: 01/10/17 16:22 Dose: 125 mls/hr Azithromycin 500 mg/ Sodium (Chloride) 250 mls @ 250 mls/hr IV ONETIME ONE Stop: 01/09/17 12:59 Last Admin: 01/09/17 12:21 Dose: 250 mls/hr Labetalol HCl (Normodyne) 10 mg IVPUSH ONETIME ONE PRN Reason: Protocol Stop: 01/08/17 20:17 Last Admin: 01/08/17 20:44 Dose: 10 mg - Exam General: Other (Sleeping) Lungs: Clear to Auscultation, Normal Respiratory Effort Cardiovascular: Regular Rate, Regular Rhythm, No Murmurs Extremities: No Pedal Edema - Problem List & Annotations (1) Positive blood culture SNOMED Code(s): 160191698 Code(s): R78.81 - BACTEREMIA Status: Acute Current Visit: Yes Annotation/Comment:: Staph hominis (2) Pneumonia SNOMED Code(s): 782126824 Code(s): J18.9 - PNEUMONIA, UNSPECIFIED ORGANISM Status: Acute Current Visit: Yes (3) Dehydration SNOMED Code(s): 61990061 Code(s): E86.0 - DEHYDRATION Status: Acute Current Visit: No (4) Dementia SNOMED Code(s): 06221862 Code(s): F03.90 - UNSPECIFIED DEMENTIA WITHOUT BEHAVIORAL DISTURBANCE Status: Acute Current Visit: No - Problem List Review Problem List Initiated/Reviewed/Updated: Yes - My Orders Last 24 Hours: My Active Orders 01/10/17 08:30 Enoxaparin [Lovenox] 30 mg SUBCUT Q24H 01/10/17 12:00 Azithromycin [Zithromax] 250 mg Sodium Chloride 0.9% [Normal Saline] 250 ml IV Q24H 01/10/17 19:02 Convert IV to Saline Lock [OM.PC] Routine 01/10/17 Lunch Pureed Diet [DIET] Thickened Liquids [DIET] - Plan Plan:: Patient grew out staph hominis. Sensitive to Levaquin. That will be started by mouth today and IV antibiotics will be stopped. I will discuss with the family whether they want to do hospice again. Patient will be ready to go to the shelter in the next couple days. Depending on how she eats.
[2017-01-11] MEDS ORDERED: Levofloxacin 500 MG Tab PO SCH (09:30)
[2017-01-11] MEDS: Enoxaparin 30 MG/0.3 ML Syringe SUBCUT SCH (09:52)
[2017-01-11] MEDS: Lisinopril 20 MG Tab PO SCH ×2 (10:19→20:28)
[2017-01-11] MEDS: Metoprolol Tartrate 50 MG Tab PO SCH ×2 (10:19→20:28)
[2017-01-11] MEDS: Amoxicillin/Clavulanate K 875-125 MG Tab PO SCH ×3 (12:15→20:28)
[2017-01-11] MEDS ORDERED: cefTRIAXone 1,000 MG in Sodium Chloride 0.9% 50 ML IV SCH (19:00)
[2017-01-12] MEDS: Pantoprazole 40 MG Tab.CR PO SCH (05:38)
[2017-01-12] MEDS: Enoxaparin 30 MG/0.3 ML Syringe SUBCUT SCH (09:33)
[2017-01-12] MEDS: Metoprolol Tartrate 50 MG Tab PO SCH ×2 (09:33→21:24)
[2017-01-12] MEDS: Amoxicillin/Clavulanate K 875-125 MG Tab PO SCH ×2 (09:33→21:24)
[2017-01-12] MEDS: Lisinopril 20 MG Tab PO SCH ×2 (09:34→21:24)
--- NOTE | 2017-01-12 10:36 | PCM.PN ---
- General Info Date of Service: 01/12/17 Admission Dx/Problem (Free Text): Patient again is nonresponsive. She looks at me and did make a few grunts when I talk to her today. Nurses states she's not swallowing her pills so I put her back on IV antibiotics due to her bacteremia. - Patient Data Vitals - Most Recent: Last Vital Signs Temp 97.8 F 01/12/17 00:00 Pulse 99 01/12/17 09:33 Resp 18 01/12/17 00:00 BP 173/88 H 01/12/17 09:34 Pulse Ox 97 01/12/17 00:00 Weight - Most Recent: 166 lb Laz Results Last 24 Hours: Microbiology 01/08/17 11:07 Aerobic Blood Culture - Preliminary Blood - Venous - Lab Draw NO GROWTH AFTER 3 DAYS Anaerobic Blood Culture - Preliminary NO GROWTH AFTER 3 DAYS Med Orders - Current: Current Medications Albuterol (Proventil Neb Soln) 2.5 mg NEB Q4H PRN PRN Reason: Shortness Of Breath/wheezing Last Admin: 01/08/17 12:07 Dose: 2.5 mg Amoxicillin/Clavulanate Potassium (Augmentin 875 Mg/125 Mg) 1 tab PO Q12H [facility] Last Admin: 01/12/17 09:33 Dose: 1 tab Enoxaparin Sodium (Lovenox) 30 mg SUBCUT Q24H [facility] Last Admin: 01/12/17 09:33 Dose: 30 mg Sodium Chloride (Normal Saline) 250 mls @ 100 mls/hr IV ASDIRECTED [facility] Last Admin: 01/09/17 11:20 Dose: 100 mls/hr Ceftriaxone Sodium 1,000 mg/ (Sodium Chloride) 50 mls @ 100 mls/hr IV Q24H [facility] Last Admin: 01/11/17 19:18 Dose: 100 mls/hr Lisinopril (Prinivil) 20 mg PO BID [facility] Last Admin: 01/12/17 09:34 Dose: 20 mg Metoprolol Tartrate (Lopressor) 50 mg PO BID [facility] Last Admin: 01/12/17 09:33 Dose: 50 mg Pantoprazole Sodium (Protonix) 40 mg PO DAILY@0600 [facility] Last Admin: 01/12/17 05:38 Dose: 40 mg Sodium Chloride (Saline Flush) 10 ml FLUSH ASDIRECTED PRN PRN Reason: Keep Vein Open Discontinued Medications Lactated Ringer's (Ringers, Lactated) 1,000 mls @ 125 mls/hr IV ASDIRECTED [facility] Last Admin: 01/10/17 16:22 Dose: 125 mls/hr Azithromycin 250 mg/ Sodium (Chloride) 250 mls @ 250 mls/hr IV Q24H [facility] Last Admin: 01/10/17 13:50 Dose: 250 mls/hr Azithromycin 500 mg/ Sodium (Chloride) 250 mls @ 250 mls/hr IV ONETIME ONE Stop: 01/09/17 12:59 Last Admin: 01/09/17 12:21 Dose: 250 mls/hr Ceftriaxone Sodium 1,000 mg/ (Sodium Chloride) 50 mls @ 100 mls/hr IV Q24H [facility] Last Admin: 01/10/17 11:30 Dose: 100 mls/hr Labetalol HCl (Normodyne) 10 mg IVPUSH ONETIME ONE PRN Reason: Protocol Stop: 01/08/17 20:17 Last Admin: 01/08/17 20:44 Dose: 10 mg Levofloxacin (Levaquin) 500 mg PO Q24H [facility] Last Admin: 01/11/17 10:19 Dose: Not Given - Exam General: No: Alert, Oriented, Cooperative Neck: Supple Lungs: Clear to Auscultation, Normal Respiratory Effort Cardiovascular: Regular Rate, Regular Rhythm, No Murmurs Extremities: No Pedal Edema Psy/Mental Status: No: Alert, Normal Affect, Normal Mood - Problem List & Annotations (1) Positive blood culture SNOMED Code(s): 880015291 Code(s): R78.81 - BACTEREMIA Status: Acute Current Visit: Yes Annotation/Comment:: Staph hominis (2) Pneumonia SNOMED Code(s): 711414971 Code(s): J18.9 - PNEUMONIA, UNSPECIFIED ORGANISM Status: Acute Current Visit: Yes (3) Dehydration SNOMED Code(s): 88208372 Code(s): E86.0 - DEHYDRATION Status: Acute Current Visit: No (4) Dementia SNOMED Code(s): 54449977 Code(s): F03.90 - UNSPECIFIED DEMENTIA WITHOUT BEHAVIORAL DISTURBANCE Status: Acute Current Visit: No - Problem List Review Problem List Initiated/Reviewed/Updated: Yes - My Orders Last 24 Hours: My Active Orders 01/11/17 19:00 cefTRIAXone [Rocephin] 1,000 mg Sodium Chloride 0.9% [Normal Saline] 50 ml IV Q24H - Plan Plan:: 1. IV antibiotic to the bacteremia. 2. Discuss with the family future placement including assisted and/or hospice. Have discussed the possibility feeding tube in they didn't seem like they're interested not.
--- NOTE | 2017-01-12 15:57 | CR ---
INDICATION: Respiratory distress. CHEST: AP portable upright view of the chest was obtained 01/08/2017 and compared with 01/06/2017, revealing slightly better inspiration. However, still there is a poor inspiration emphasizing heart and markings. A definite active infiltrate or effusion was not identified. A density behind the heart may be on the basis of a moderate sized fixed hiatal hernia - correlate clinically. The heart did not appear grossly enlarged, but may be slightly enlarged. The aorta is tortuous with calcification in the arch. IMPRESSION: No definite acute process. Findings as noted above. MTDD
--- NOTE | 2017-01-13 06:56 | PCM.PN ---
- General Info Date of Service: 01/13/17 Admission Dx/Problem (Free Text): She is conditions the same. She opens her eyes but does not respond. - Patient Data Vitals - Most Recent: Last Vital Signs Temp 97.9 F 01/13/17 04:45 Pulse 97 01/13/17 04:45 Resp 16 01/13/17 04:45 BP 158/73 H 01/13/17 04:45 Pulse Ox 94 L 01/13/17 04:45 Weight - Most Recent: 166 lb I&O - Last 24 Hours: Intake & Output 01/12/17 01/12/17 01/13/17 14:59 22:59 06:59 Intake Total 0 Balance 0 Laz Results Last 24 Hours: Microbiology 01/08/17 11:07 Aerobic Blood Culture - Preliminary Blood - Venous - Lab Draw NO GROWTH AFTER 4 DAYS Anaerobic Blood Culture - Preliminary NO GROWTH AFTER 4 DAYS Med Orders - Current: Current Medications Albuterol (Proventil Neb Soln) 2.5 mg NEB Q4H PRN PRN Reason: Shortness Of Breath/wheezing Last Admin: 01/08/17 12:07 Dose: 2.5 mg Amoxicillin/Clavulanate Potassium (Augmentin 875 Mg/125 Mg) 1 tab PO Q12H [facility] Last Admin: 01/12/17 21:24 Dose: Not Given Enoxaparin Sodium (Lovenox) 30 mg SUBCUT Q24H [facility] Last Admin: 01/12/17 09:33 Dose: 30 mg Sodium Chloride (Normal Saline) 250 mls @ 100 mls/hr IV ASDIRECTED [facility] Last Admin: 01/09/17 11:20 Dose: 100 mls/hr Lisinopril (Prinivil) 20 mg PO BID [facility] Last Admin: 01/12/17 21:24 Dose: Not Given Metoprolol Tartrate (Lopressor) 50 mg PO BID [facility] Last Admin: 01/12/17 21:24 Dose: Not Given Pantoprazole Sodium (Protonix) 40 mg PO DAILY@0600 [facility] Last Admin: 01/12/17 05:38 Dose: 40 mg Sodium Chloride (Saline Flush) 10 ml FLUSH ASDIRECTED PRN PRN Reason: Keep Vein Open Discontinued Medications Lactated Ringer's (Ringers, Lactated) 1,000 mls @ 125 mls/hr IV ASDIRECTED [facility] Last Admin: 01/10/17 16:22 Dose: 125 mls/hr Azithromycin 250 mg/ Sodium (Chloride) 250 mls @ 250 mls/hr IV Q24H [facility] Last Admin: 01/10/17 13:50 Dose: 250 mls/hr Azithromycin 500 mg/ Sodium (Chloride) 250 mls @ 250 mls/hr IV ONETIME ONE Stop: 01/09/17 12:59 Last Admin: 01/09/17 12:21 Dose: 250 mls/hr Ceftriaxone Sodium 1,000 mg/ (Sodium Chloride) 50 mls @ 100 mls/hr IV Q24H [facility] Last Admin: 01/10/17 11:30 Dose: 100 mls/hr Ceftriaxone Sodium 1,000 mg/ (Sodium Chloride) 50 mls @ 100 mls/hr IV Q24H [facility] Last Admin: 01/11/17 19:18 Dose: 100 mls/hr Labetalol HCl (Normodyne) 10 mg IVPUSH ONETIME ONE PRN Reason: Protocol Stop: 01/08/17 20:17 Last Admin: 01/08/17 20:44 Dose: 10 mg Levofloxacin (Levaquin) 500 mg PO Q24H [facility] Last Admin: 01/11/17 10:19 Dose: Not Given - Exam General: Other (Opens eyes but does not respond.) Neck: Supple Lungs: Clear to Auscultation, Normal Respiratory Effort Cardiovascular: Regular Rate, Regular Rhythm, No Murmurs - Problem List & Annotations (1) Positive blood culture SNOMED Code(s): 564790879 Code(s): R78.81 - BACTEREMIA Status: Acute Current Visit: Yes Annotation/Comment:: Staph hominis (2) Pneumonia SNOMED Code(s): 822774733 Code(s): J18.9 - PNEUMONIA, UNSPECIFIED ORGANISM Status: Acute Current Visit: Yes (3) Dehydration SNOMED Code(s): 62799237 Code(s): E86.0 - DEHYDRATION Status: Acute Current Visit: No (4) Dementia SNOMED Code(s): 72094500 Code(s): F03.90 - UNSPECIFIED DEMENTIA WITHOUT BEHAVIORAL DISTURBANCE Status: Acute Current Visit: No - Problem List Review Problem List Initiated/Reviewed/Updated: Yes - Plan Plan:: 1. Family met with hospice and wanted hospice. She'll be transferred to [facility] where she was before and then hospice consult. 2. Continue oral antibiotics.
--- NOTE | 2017-01-13 07:07 | PCM.DCSUM1 ---
Discharge Summary - Hospital Course Free Text/Narrative:: Hospital course-patient was admitted blood culture came back positive grew staph hominis. She was started on IV antibiotics. She was given IV fluids because of her poor oral intake. After the IV antibiotics are started she woke up a little bit better she would eat occasionally. When we got the I and D back started on by mouth but she didn't always take the pills so we've per IVs again and then again the next day switch her back pills. Family had a discussion about hospice. After delivery patient a couple days his side hospice. She was able to eat with assist. She does not respond other than opens her eyes. She'll be sent back to sitting catheters living [facility] hosp[facility]. Will use Augmentin 875 twice a day for 10 days for the bacteremia. 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 CT brain showed no bleeding was admitted. - Discharge Data Discharge Date: 01/13/17 Discharge Disposition: DC/[facility] 61 Condition: Poor - Discharge Diagnosis/Problem(s) (1) Positive blood culture SNOMED Code(s): 875609718 ICD Code: R78.81 - BACTEREMIA Status: Acute Current Visit: Yes Problem Details: Staph hominis (2) Pneumonia SNOMED Code(s): 081842940 ICD Code: J18.9 - PNEUMONIA, UNSPECIFIED ORGANISM Status: Acute Current Visit: Yes (3) Dehydration SNOMED Code(s): 54114696 ICD Code: E86.0 - DEHYDRATION Status: Acute Current Visit: No (4) Dementia SNOMED Code(s): 33919153 ICD Code: F03.90 - UNSPECIFIED DEMENTIA WITHOUT BEHAVIORAL DISTURBANCE Status: Acute Current Visit: No - Patient Summary/Data Consults: Consultations 01/08/17 09:59 Respiratory Care Assess and Treatment [CONS] Routine Comment: Physician Instructions: - Patient Instructions Diet: Mechanical Soft Activity: Non Weight Bearing Driving: Do Not Drive Showering/Bathing: May Shower Other/Special Instructions: 1. Hospice consult. - Discharge Plan Prescriptions/Med Rec: Amoxicillin/Clavulanate K [Augmentin 875-125 MG] 1 tab PO Q12H #20 tablet Home Medications: Home Meds Hydrochlorothiazide 12.5 mg PO DAILY 01/06/17 [History] L. Acidophilus/Strept/LA P-Naveed [Risaquad-2] 1 cap PO DAILY 01/06/17 [History] Lisinopril 20 mg PO BID 01/06/17 [History] Loperamide [Imodium AD] 2 mg PO DAILY 01/06/17 [History] Memantine [Namenda] 10 mg PO BID 01/06/17 [History] Metoprolol Tartrate [Lopressor] 50 mg PO BID 01/06/17 [History] Omeprazole 20 mg PO DAILY 01/06/17 [History] Acetaminophen [Tylenol Arthritis] 1,300 mg PO BID 01/08/17 [History] Acetaminophen [Tylenol] 650 mg PO Q4H PRN 01/08/17 [History] Benzonatate 100 mg PO Q8H PRN 01/08/17 [History] Magnesium Hydroxide [Milk of Magnesia] 30 ml PO ASDIRECTED PRN 01/08/17 [History ] guaiFENesin [Robitussin] 200 mg PO Q4H PRN 01/08/17 [History] Amoxicillin/Clavulanate K [Augmentin 875-125 MG] 1 tab PO Q12H #20 tablet [Rx] - Discharge Summary/Plan Comment DC Time >30 min.: No - Patient Data Vitals - Most Recent: Last Vital Signs Temp 97.9 F 01/13/17 04:45 Pulse 97 01/13/17 04:45 Resp 16 01/13/17 04:45 BP 158/73 H 01/13/17 04:45 Pulse Ox 94 L 01/13/17 04:45 Weight - Most Recent: 166 lb JOJO Results - Last 24 hrs: Microbiology 01/08/17 11:07 Aerobic Blood Culture - Preliminary Blood - Venous - Lab Draw NO GROWTH AFTER 4 DAYS Anaerobic Blood Culture - Preliminary NO GROWTH AFTER 4 DAYS Med Orders - Current: Current Medications Albuterol (Proventil Neb Soln) 2.5 mg NEB Q4H PRN PRN Reason: Shortness Of Breath/wheezing Last Admin: 01/08/17 12:07 Dose: 2.5 mg Amoxicillin/Clavulanate Potassium (Augmentin 875 Mg/125 Mg) 1 tab PO Q12H [facility] Last Admin: 01/12/17 21:24 Dose: Not Given Enoxaparin Sodium (Lovenox) 30 mg SUBCUT Q24H [facility] Last Admin: 01/12/17 09:33 Dose: 30 mg Sodium Chloride (Normal Saline) 250 mls @ 100 mls/hr IV ASDIRECTED [facility] Last Admin: 01/09/17 11:20 Dose: 100 mls/hr Lisinopril (Prinivil) 20 mg PO BID [facility] Last Admin: 01/12/17 21:24 Dose: Not Given Metoprolol Tartrate (Lopressor) 50 mg PO BID [facility] Last Admin: 01/12/17 21:24 Dose: Not Given Pantoprazole Sodium (Protonix) 40 mg PO DAILY@0600 [facility] Last Admin: 01/12/17 05:38 Dose: 40 mg Sodium Chloride (Saline Flush) 10 ml FLUSH ASDIRECTED PRN PRN Reason: Keep Vein Open Discontinued Medications Lactated Ringer's (Ringers, Lactated) 1,000 mls @ 125 mls/hr IV ASDIRECTED [facility] Last Admin: 01/10/17 16:22 Dose: 125 mls/hr Azithromycin 250 mg/ Sodium (Chloride) 250 mls @ 250 mls/hr IV Q24H [facility] Last Admin: 01/10/17 13:50 Dose: 250 mls/hr Azithromycin 500 mg/ Sodium (Chloride) 250 mls @ 250 mls/hr IV ONETIME ONE Stop: 01/09/17 12:59 Last Admin: 01/09/17 12:21 Dose: 250 mls/hr Ceftriaxone Sodium 1,000 mg/ (Sodium Chloride) 50 mls @ 100 mls/hr IV Q24H [facility] Last Admin: 01/10/17 11:30 Dose: 100 mls/hr Ceftriaxone Sodium 1,000 mg/ (Sodium Chloride) 50 mls @ 100 mls/hr IV Q24H [facility] Last Admin: 01/11/17 19:18 Dose: 100 mls/hr Labetalol HCl (Normodyne) 10 mg IVPUSH ONETIME ONE PRN Reason: Protocol Stop: 01/08/17 20:17 Last Admin: 01/08/17 20:44 Dose: 10 mg Levofloxacin (Levaquin) 500 mg PO Q24H [facility] Last Admin: 01/11/17 10:19 Dose: Not Given *Q Meaningful Use (DIS) - VTE *Q VTE Criteria *Q: - Stroke *Q Stroke Criteria *Q: - AMI *Q AMI Criteria *Q:
[2017-01-13 07:50] VITALS: BP 156/81
[2017-01-13] MEDS: Enoxaparin 30 MG/0.3 ML Syringe SUBCUT SCH (07:55)
[2017-01-13] MEDS: Pantoprazole 40 MG Tab.CR PO SCH (08:06)
[2017-01-13] MEDS: Lisinopril 20 MG Tab PO SCH (14:58)
[2017-01-13] MEDS: Metoprolol Tartrate 50 MG Tab PO SCH (14:58)
[2017-01-13] MEDS: Amoxicillin/Clavulanate K 875-125 MG Tab PO SCH (14:58)
== END 2017-01-13 10:30 | disposition hospice, inpatient (51) | DRG 194 ==
LOC: FB.MS 10:28
PROVIDERS: ADMIT Family Medicine; ATTEND Family Medicine
DX: J18.9 Pneumonia, unspecified organism (principal); R78.81 Bacteremia; I69.951 Hemiplegia and hemiparesis following unspecified cerebrovascular disease affecting right dominant side; B95.7 Other staphylococcus as the cause of diseases classified elsewhere; I10 Essential (primary) hypertension; Z66 Do not resuscitate; I69.920 Aphasia following unspecified cerebrovascular disease; G31.83 Neurocognitive disorder with Lewy bodies; F02.80 Dementia in other diseases classified elsewhere, unspecified severity, without behavioral disturbance, psychotic disturbance, mood disturbance, and anxiety; M19.90 Unspecified osteoarthritis, unspecified site; G47.30 Sleep apnea, unspecified; Z79.2 Long term (current) use of antibiotics; Z88.1 Allergy status to other antibiotic agents; Z88.8 Allergy status to other drugs, medicaments and biological substances
CPT/HCPCS: 36415; 71010; 80048; 80053; 81003; 84132; 85025; 87040; 87077; 87186; 93005; 94664; A9270-GY; J0456; J0696; J1650; J7050; J7120